=== PATIENT | female | born 1995 | race American Indian/Alaskan Native ===

== ENCOUNTER 2016-08-07 18:43 | Emergency (ER) | payer SELFPAY ==
[2016-08-07 18:58] VITALS: BP 127/86
[2016-08-07 19:39] LABS: Basophils % (Auto) 0.6 % (0.0-1.8); Hemoglobin 14.3 gm/dl (10.1-14.3); Mean Corpuscular HGB Conc 32 % (30-34); Mean Corpuscular Hemoglobin 31 pg (28-32); Mean Corpuscular Volume 96 fl (79-97); Platelet Count 237 K/mm3 (140-440); Red Blood Count 4.59 M/mm3 (3.65-5.03); Red Cell Distribution Width 13.2 % (13.2-15.2); White Blood Count 6.6 K/mm3 (4.5-11.0)
[2016-08-07 19:45] LABS: Alanine Aminotransferase 11 units/L (7-56); Albumin 4.6 g/dL (3.9-5); Albumin/Globulin Ratio 1.4 %; Alkaline Phosphatase 51 units/L (35-129); Anion Gap 26 mmol/L; Blood Urea Nitrogen 14 mg/dL (7-17); Calcium 9.4 mg/dL (8.4-10.2); Carbon Dioxide 20 mmol/L (22-30); Chloride 98.6 mmol/L (98-107); Glucose 102 mg/dL (65-100); Lipase 19 units/L (13-60); Potassium 4.3 mmol/L (3.6-5.0); Sodium 140 mmol/L (137-145); Total Protein 7.9 g/dL (6.3-8.2)
[2016-08-07] MEDS ORDERED: TYLENOL ONE (20:06)
[2016-08-07] MEDS ORDERED: ZOFRAN ODT ONE (20:06)
[2016-08-07] MEDS ORDERED: TYLENOL PO ONE (20:16)
[2016-08-07] MEDS ORDERED: ZOFRAN ODT PO ONE (20:16)
[2016-08-07 20:31] LABS: Bacteria,Urine 1+ /HPF (Negative); Bilirubin,Urine NEG (Negative); Blood,Urine NEG (Negative); Ketones,Urine 80 mg/dL (Negative); Leukocyte Esterase,Urine TR (Negative); Mucus,Urine 3+ /HPF; Nitrite,Urine NEG (Negative)
== END 2016-08-08 01:15 | disposition left against medical advice (07) ==
LOC: ED 18:43
DX: R10.9 Unspecified abdominal pain (principal); R11.2 Nausea with vomiting, unspecified; R19.7 Diarrhea, unspecified; Z53.21 Procedure and treatment not carried out due to patient leaving prior to being seen by health care provider
CPT/HCPCS: 36415; 80053; 81001; 81025; 82962; 83690; 85025; Q0162

== ENCOUNTER 2017-06-05 13:19 | Emergency (ER) | payer OTHER ==
[2017-06-05 14:31] VITALS: BP 105/74
[2017-06-05 16:53] LABS: Bacteria,Urine 1+ /HPF (Negative); Bilirubin,Urine NEG (Negative); Blood,Urine LG (Negative); Color,Urine Yellow (Yellow); Mucus,Urine 3+ /HPF; Urobilinogen,Urine < 2.0 mg/dL (<2.0)
[2017-06-05 16:54] LABS: HCG Qualitative,Urine Negative (Negative)
[2017-06-05] MEDS ORDERED: ZOFRAN ONE (16:55)
[2017-06-05] MEDS ORDERED: NACL 0.9% 1000 ML 1,000 ML ONE (16:55)
[2017-06-05] MEDS ORDERED: NACL 0.9% 1000 ML 1,000 ML IV ONE (16:56)
[2017-06-05] MEDS ORDERED: MORPHINE IV ONE (16:56)
[2017-06-05] MEDS ORDERED: ZOFRAN IV ONE (16:56)
[2017-06-05] MEDS ORDERED: NACL 0.9% 1000 ML 2,000 ML IV ONE (17:00)
--- NOTE | 2017-06-05 17:02 | Emergency Department Report ---
HPI - General Chief Complaint: Nausea/Vomiting/Diarrhea Time Seen by Provider: 06/05/17 16:31 - HPI HPI: The patient is a 22-year-old female presents for evaluation of abdominal pain. The patient reports cramping generalized abdominal pain for the past one day, constant, worsening, currently moderate in severity, exacerbated with retching. She is also experienced severe recurrent nausea and nonbilious, nonbloody emesis and multiple episodes of loose watery stools. The patient denies fever, chest pain, dyspnea, hematemesis, blood in the stools, black tarry stools, recent antibiotic use, travel outside the country, exposure to raw or uncooked seafood, reheated foods, untreated water, unpasteurized dairy, or reptilian pets including lizards, frogs, or snakes. ED Past Medical Hx - Past Medical History Previous Medical History?: No - Surgical History Additional Surgical History: right leg - Social History Smoking Status: Current Every Day Smoker Substance Use Type: None - Medications Home Medications: Home Medications Medication Instructions Recorded Confirmed Last Taken Type HYDROcodone/APAP 5-325 [[place] 1 each PO Q6HR PRN #14 tablet 08/30/15 Unknown Rx 5/325] Sulfamethoxazole/Trimethoprim 1 each PO BID #14 tablet 08/30/15 Unknown Rx [Bactrim DS TAB] Acetaminophen [Tylenol] 1,000 mg PO Q6HR #15 tablet 06/05/17 Unknown Rx Ibuprofen [Motrin] 600 mg PO Q8H PRN #30 tablet 06/05/17 Unknown Rx Ondansetron [Zofran TAB] 4 mg PO Q8HR PRN #20 tablet 06/05/17 Unknown Rx ED Review of Systems ROS: Stated complaint: VOMTING Other details as noted in HPI Constitutional: denies: fever ENT: denies: throat or neck pain Respiratory: denies: cough, shortness of breath Cardiovascular: denies: chest pain Endocrine: denies unexplained weight loss or gain Gastrointestinal: reports: abdominal pain, nausea Genitourinary: denies: dysuria Musculoskeletal: denies: leg swelling Skin: denies: rash Neurological: denies: headache Hematological/Lymphatic: denies: easy bleeding or easy bruising Psych: denies sadness or hopelessness Physical Exam - Physical Exam Vital Signs: Vital Signs 06/05/17 14:16 Temperature 98.7 F Pulse Rate 101 H Respiratory 16 Rate Blood Pressure 105/74 O2 Sat by Pulse 100 Oximetry Physical Exam: General: well-nourished, well-developed, no acute distress Head: Normocephalic, atraumatic Eyes: normal sclera ENT: Mucous membranes are pale and dry Neck: No neck stiffness, no cervical adenopathy Respiratory: Breath sounds equal bilaterally, no wheezing, rales, or rhonchi Cardio: S1 and S2 present, no murmurs, rubs, gallops, capillary refill is delayed Abdomen: Normoactive bowel sounds, soft abdomen, generalized tender to palpation , no rigidity, no guarding or rebound tenderness Musc: No pitting edema Skin: No rash Neuro: no facial drooping, normal speech Psych: Normal affect ED Course Vital Signs 06/05/17 14:16 Temperature 98.7 F Pulse Rate 101 H Respiratory 16 Rate Blood Pressure 105/74 O2 Sat by Pulse 100 Oximetry ED Medical Decision Making - Lab Data Result diagrams: 06/05/17 17:05 06/05/17 17:05 - Medical Decision Making The patient was seen and examined by myself. The patient is placed on a cardiac catheterization technician and continuous pulse ox. On initial evaluation, the patient was found to be in no distress. Evaluation orders are placed. IV access is established and the patient is given 2 L normal saline fluid bolus and Zofran for nausea, and IV analgesic for pain. Lab results were non-concerning including WBC, hemoglobin, hematocrit, electrolytes, renal function, LFTs, lipase, and urinalysis. The patient was reevaluated and reported that their symptoms were markedly improved. The patient is stable for discharge with outpatient follow-up. The patient is given follow-up and return instructions. The patient expressed understanding and agreed with the plan. The patient is discharged in stable condition. Critical care attestation.: If time is entered above; I have spent that time in minutes in the direct care of this critically ill patient, excluding procedure time. ED Disposition Clinical Impression: Dehydration, Acute generalized abdominal pain, Nausea and vomiting in adult patient Disposition: DC-01 TO HOME OR SELFCARE Is pt being admited?: No Does the pt Need Aspirin: No Condition: Stable Instructions: Gastroenteritis (ED), Acute Diarrhea (ED), Food Poisoning (ED), Nutrition Tips for Relief of Diarrhea (ED) Prescriptions: Acetaminophen [Tylenol] 1,000 mg PO Q6HR #15 tablet Ibuprofen [Motrin] 600 mg PO Q8H PRN #30 tablet PRN Reason: Pain Ondansetron [Zofran TAB] 4 mg PO Q8HR PRN #20 tablet PRN Reason: Nausea Referrals: PRIMARY CARE, [Primary Care Provider] - 3-5 Days Time of Disposition: 17:39
[2017-06-05 17:16] LABS: Hematocrit 45.7 % (30.3-42.9); Hemoglobin 15.7 gm/dl (10.1-14.3); Mean Corpuscular HGB Conc 34 % (30-34); Mean Corpuscular Hemoglobin 32 pg (28-32); Mean Corpuscular Volume 94 fl (79-97); Platelet Count 231 K/mm3 (140-440); Red Blood Count 4.89 M/mm3 (3.65-5.03); Red Cell Distribution Width 13.1 % (13.2-15.2)
[2017-06-05 17:29] LABS: Alanine Aminotransferase 36 units/L (7-56); Albumin 4.9 g/dL (3.9-5); BUN/Creatinine Ratio 18; Blood Urea Nitrogen 14 mg/dL (7-17); Calcium 9.8 mg/dL (8.4-10.2); Hemolysis Index 1; Lipase 28 units/L (13-60)
[2017-06-05] MEDS ORDERED: K-DUR PO ONE (17:38)
[2017-06-05 19:09] LABS: Basophils % (Manual) 0 % (0.0-1.8); Eosinophils % (Manual) 0 % (0.0-4.3); Total Cells Counted 100
[2017-06-05 19:10] LABS: RBC Morphology Normal
[2017-06-05 19:11] LABS: Platelet Estimate Consistent w Auto
== END 2017-06-05 17:49 | disposition home or self-care (01) ==
LOC: ED 13:19
DX: E86.0 Dehydration (principal); F17.200 Nicotine dependence, unspecified, uncomplicated
CPT/HCPCS: 36415; 80053; 81001; 81025; 83690; 85007; 85025; 96361; 96374; 96375; 99282; J2270; J2405; J7030

== ENCOUNTER 2017-07-08 23:49 | Emergency (ER) | payer SELFPAY | END 2017-07-08 23:59 | disposition left against medical advice (07) | LOC: ED 23:49 | DX: R11.10 Vomiting, unspecified (principal); Z53.21 Procedure and treatment not carried out due to patient leaving prior to being seen by health care provider ==

== ENCOUNTER 2018-10-02 13:29 | Outpatient (CLI) | payer OTHER ==
[2018-10-02] MEDS ORDERED: LACTATED RINGERS 1,000 ML IV SCH (16:00)
[2018-10-02 16:55] LABS: Bilirubin,Urine NEG (Negative); Blood,Urine NEG (Negative); Color,Urine Yellow (Yellow); Mucus,Urine 2+ /HPF; Protein,Urine <15 mg/dL mg/dL (Negative); Urobilinogen,Urine < 2.0 mg/dL (<2.0)
--- NOTE | 2018-10-02 19:11 | Ultrasound Report ---
ULTRASOUND BIOPHYSICAL PROFILE INDICATION / CLINICAL INFORMATION: Pelvic pain. Evaluate DERRICK's. . COMPARISON: None available. FINDINGS: BREATHING MOVEMENT = 2 GROSS BODY MOVEMENT = 2 TONE = 2 QUALITATIVE AMNIOTIC FLUID VOLUME = 2 TOTAL BIOPHYSICAL SCORE = 10/30 AMNIOTIC FLUID INDEX (cm) = 12.3 PRESENTATION: Cephalic. HEART RATE (beats per minute): 142 IMPRESSION: 1. biophysical profile = 10/30 Signer Name: Andrew Joseph MD Signed: 10/02/2018 7:07 PM Workstation Name: [id number]
== END 2018-10-02 19:11 | disposition home or self-care (01) ==
LOC: TRG 13:29
PROVIDERS: ATTEND Obstetrics & Gynecology
DX: O47.1 False labor at or after 37 completed weeks of gestation (principal); Z3A.40 40 weeks gestation of pregnancy
CPT/HCPCS: 59025; 76815; 76819; 81001; 87086

== ENCOUNTER 2018-10-05 20:19 | Inpatient (IN) | payer OTHER ==
[2018-10-05] MEDS ORDERED: LACTATED RINGERS 1,000 ML ONE (21:48)
[2018-10-05] MEDS ORDERED: XYLOCAINE 2% INFILTRATI ONE (22:29)
[2018-10-05] MEDS ORDERED: BRETHINE SUB-Q PRN (22:29)
[2018-10-05] MEDS ORDERED: AMPICILLIN/NS 2 GM/100 ML 2 GM/100 ML BAG IV ONE (22:29)
--- NOTE | 2018-10-05 22:34 | History and Physical Report ---
History of Present Illness Date of examination: 10/05/18 Date of admission: 10/05/18 20:21 Chief complaint: Here for induction of labor. History of present illness: 23 year old presents for scheduled induction of labor due to late term . Patient has received care at [facility] and records are available. LMP 12/07/17. EDC 09/28/18. significant for the following: late entry to care, + antibody screen (anti-Jerad antibody), vitamin D deficiency (supplemented with vitamin D), GBS positive. labs are as follows: B+, antibody screen positive, rubella immune, RPR nonreactive, hepatitis B surface antigen negative, HIV negative, quad screen negative, 1 hour sugar test 73, gonorrhea negative, chlamydia negative, trichomonas negative, GBS positive. 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 denies: smoking, alcohol abuse, prescription drug abuse, IV drug use - Obstetrical History Expected Date of Delivery: 09/28/18 Actual Gestation: 41 Week(s) 1 Day(s) : 2 Para: 0 Hx # Term Pregnancies: 0 Number of Pregnancies: 0 Spontaneous Abortions: 0 Induced : 1 Number of Living Children: 0 Medications and Allergies Allergies Allergy/AdvReac Type Severity Reaction Status Date / Time pineapple Allergy Hives Verified 02/16/14 11:00 Home Medications Medication Instructions Recorded Confirmed Last Taken Type HYDROcodone/APAP 5-325 [[place] 1 each PO Q6HR PRN #14 tablet 08/30/15 Unknown Rx 5/325] Sulfamethoxazole/Trimethoprim 1 each PO BID #14 tablet 08/30/15 Unknown Rx [Bactrim DS TAB] Acetaminophen [Tylenol] 1,000 mg PO Q6HR #15 tablet 06/05/17 Unknown Rx Acetaminophen/Codeine [Tylenol #3] 1 tab PO Q6H PRN #12 tab 06/05/17 Unknown Rx Ibuprofen [Motrin] 600 mg PO Q8H PRN #30 tablet 06/05/17 Unknown Rx Ondansetron [Zofran TAB] 4 mg PO Q8HR PRN #20 tablet 06/05/17 Unknown Rx Active Meds: Active Medications Ephedrine Sulfate (Ephedrine Sulfate) 10 mg IV Q2M PRN PRN Reason: Hypotension Fentanyl (Sublimaze) 100 mcg IV Q2H PRN PRN Reason: Labor Pain Oxytocin/Sodium Chloride (Pitocin/Ns 20 Unit/1000ml Drip) 20 units in 1,000 mls @ 125 mls/hr IV DIRECT PHOEBE Oxytocin/Sodium Chloride (Pitocin/Ns 30 Unit/500ml) 30 units in 500 mls @ 1 mls/hr IV TITR PHOEBE; Protocol Lactated Ringer's (Lactated Ringers) 1,000 mls @ 125 mls/hr IV DIRECT PHOEBE Ampicillin Sodium (Ampicillin/Ns 2 Gm/100 Ml) 2 gm in 100 mls @ 100 mls/hr IV ONCE ONE; Protocol Stop: 10/05/18 23:28 Ampicillin Sodium (Ampicillin/Ns 1 Gm/50 Ml) 1 gm in 50 mls @ 100 mls/hr IV Q4HR PHOEBE; Protocol Lidocaine (Xylocaine 2%) 20 ml INFILTRATI ONCE ONE Stop: 10/05/18 22:30 Terbutaline Sulfate (Brethine) 0.25 mg SUB-Q ONCE PRN PRN Reason: Hyperstimulation/Hypertonicity Review of Systems Ears, nose, mouth and throat: no headache Cardiovascular: no chest pain Respiratory: no shortness of breath Gastrointestinal: no abdominal pain, no nausea Genitourinary: no vaginal bleeding, no vaginal discharge, no genital sores, no contractions Neurological: no numbness, no tingling, no headaches, no migraines - Vital Signs Vital signs: Vital Signs Pulse BP Pulse Ox 90 130/74 99 10/05/18 20:48 10/05/18 20:48 10/05/18 20:48 Temp Pulse Resp BP Pulse Ox 90 130/74 100 10/05/18 22:09 10/05/18 20:48 10/05/18 22:09 - Physical Exam Abdomen: Positive: normal appearance, soft. Negative: tenderness, guarding, rigidity Genitourinary (Female): Positive: normal external genitalia, normal perenium. Negative: perineal/vulvar lesions Uterus: Positive: enlarged. Negative: tender Anus/Rectum: Positive: normal perianal skin Extremities: Positive: normal. Negative: tenderness, edema - Obstetrical FHR: category 1 Uterine Contraction Monitor Mode: External Cervical Dilatation: 0.5 Cervical Effacement Percentage: 40 station: -4 Uterine Contraction Pattern: Irregular Uterine Contraction Intensity: Mild Results Result Diagrams: 10/05/18 22:20 All other labs normal. Assessment and Plan A: at 41 weeks gestation. GBS positive. P: Admit. GBS prophylaxis. Cervical ripening and induction of labor with Pitocin. Discussed with patient risks and benefits of cervical ripening and induction of labor with Pitocin. Patient consented to Pitocin cervical ripening and induction of labor.
[2018-10-05 22:53] LABS: Hematocrit 34.2 % (30.3-42.9); Hemoglobin 11.2 gm/dl (10.1-14.3); Mean Corpuscular HGB Conc 33 % (30-34); Mean Corpuscular Volume 85 fl (79-97); Platelet Count 249 K/mm3 (140-440); Red Blood Count 4.02 M/mm3 (3.65-5.03); Red Cell Distribution Width 14.8 % (13.2-15.2)
[2018-10-05] MEDS ORDERED: LACTATED RINGERS 1,000 ML IV SCH (23:00)
[2018-10-05] MEDS ORDERED: PITOCin/NS 20 UNIT/1000ML DRIP 20 UNITS/1,000 ML BAG IV SCH (23:00)
[2018-10-05] MEDS ORDERED: PITOCin/NS 30 UNIT/500ML 30 UNITS/500 ML BAG IV SCH (23:00)
[2018-10-06] MEDS: AMPICILLIN/NS 1 GM/50 ML 1 GM/50 ML BAG IV SCH ×4 (02:05→14:31)
[2018-10-06] MEDS: SUBLIMAZE IV PRN ×3 (04:34→10:50)
--- NOTE | 2018-10-06 09:29 | Progress Note ---
Assessment and Plan - Patient Problems (1) Encounter for induction of labor Current Visit: Yes Status: Acute Plan to address problem: Continue routine labor orders Increase Pitocin by 2 q 30 min as tolerated Pain medications as desired Anticipate (2) SROM (spontaneous rupture of membranes) Current Visit: Yes Status: Acute Plan to address problem: Continue temps q h (3) Group beta Strep positive Current Visit: Yes Status: Acute Plan to address problem: ABT prophlaxis per policy Subjective - Subjective Date of service: 10/06/18 ( ) Principal diagnosis: IOL secondary to postdates Interval history: See admission H & P Patient reports: loss of fluid (light meconium), movement normal, contractions (irregular), no vaginal bleeding Objective - Vital Signs Vital Signs: Vital Signs - 12hr 10/05/18 10/05/18 10/05/18 21:29 21:34 21:36 Temperature Pulse Rate 87 89 95 H Respiratory Rate Blood Pressure Blood Pressure [Left] O2 Sat by Pulse 98 98 93 Oximetry 10/05/18 10/05/18 10/05/18 21:39 21:41 21:49 Temperature Pulse Rate 90 90 88 Respiratory Rate Blood Pressure Blood Pressure [Left] O2 Sat by Pulse 99 82 L 97 Oximetry 10/05/18 10/05/18 10/05/18 21:54 21:57 21:59 Temperature Pulse Rate 92 H 99 H 85 Respiratory Rate Blood Pressure Blood Pressure [Left] O2 Sat by Pulse 100 85 100 Oximetry 10/05/18 10/05/18 10/05/18 22:04 22:05 22:09 Temperature Pulse Rate 89 89 90 Respiratory Rate Blood Pressure Blood Pressure [Left] O2 Sat by Pulse 99 53 L 100 Oximetry 10/05/18 10/05/18 10/05/18 23:36 23:37 23:38 Temperature Pulse Rate 85 85 93 H Respiratory Rate Blood Pressure 128/76 Blood Pressure [Left] O2 Sat by Pulse 97 85 Oximetry 10/05/18 10/05/18 10/05/18 23:41 23:45 23:46 Temperature Pulse Rate 89 92 H 87 Respiratory Rate Blood Pressure Blood Pressure [Left] O2 Sat by Pulse 97 94 97 Oximetry 10/05/18 10/05/18 10/06/18 23:51 23:56 00:01 Temperature Pulse Rate 95 H 81 87 Respiratory Rate Blood Pressure Blood Pressure [Left] O2 Sat by Pulse 99 98 97 Oximetry 10/06/18 10/06/18 10/06/18 00:06 00:24 00:29 Temperature Pulse Rate 87 92 H Respiratory Rate Blood Pressure Blood Pressure [Left] O2 Sat by Pulse 97 98 99 Oximetry 10/06/18 10/06/18 10/06/18 00:31 00:34 00:39 Temperature Pulse Rate 88 87 88 Respiratory Rate Blood Pressure 125/81 Blood Pressure [Left] O2 Sat by Pulse 99 100 Oximetry 10/06/18 10/06/18 10/06/18 00:44 00:49 00:54 Temperature Pulse Rate 98 H 97 H 100 H Respiratory Rate Blood Pressure Blood Pressure [Left] O2 Sat by Pulse 99 99 98 Oximetry 10/06/18 10/06/18 10/06/18 00:59 01:04 01:09 Temperature Pulse Rate 94 H 104 H 87 Respiratory Rate Blood Pressure Blood Pressure [Left] O2 Sat by Pulse 98 98 98 Oximetry 10/06/18 10/06/18 10/06/18 01:14 01:19 01:24 Temperature Pulse Rate 89 91 H 100 H Respiratory Rate Blood Pressure Blood Pressure [Left] O2 Sat by Pulse 99 99 99 Oximetry 10/06/18 10/06/18 10/06/18 01:29 01:30 01:34 Temperature Pulse Rate 83 85 107 H Respiratory Rate Blood Pressure 119/74 Blood Pressure [Left] O2 Sat by Pulse 99 99 Oximetry 10/06/18 10/06/18 10/06/18 01:35 01:39 01:44 Temperature Pulse Rate 96 H 87 97 H Respiratory Rate Blood Pressure Blood Pressure [Left] O2 Sat by Pulse 94 100 99 Oximetry 10/06/18 10/06/18 10/06/18 01:49 01:54 01:56 Temperature Pulse Rate 100 H 88 89 Respiratory Rate Blood Pressure Blood Pressure [Left] O2 Sat by Pulse 98 99 94 Oximetry 10/06/18 10/06/18 10/06/18 01:59 02:04 02:09 Temperature Pulse Rate 94 H 89 97 H Respiratory Rate Blood Pressure Blood Pressure [Left] O2 Sat by Pulse 99 99 99 Oximetry 10/06/18 10/06/18 10/06/18 02:14 02:20 02:30 Temperature Pulse Rate 93 H 89 106 H Respiratory Rate Blood Pressure Blood Pressure [Left] O2 Sat by Pulse 100 98 91 Oximetry 10/06/18 10/06/18 10/06/18 02:31 02:35 02:40 Temperature Pulse Rate 103 H 101 H 88 Respiratory Rate Blood Pressure Blood Pressure [Left] O2 Sat by Pulse 93 98 98 Oximetry 10/06/18 10/06/18 10/06/18 02:45 02:50 02:55 Temperature 98.6 F Pulse Rate 102 H 86 90 Respiratory Rate Blood Pressure Blood Pressure [Left] O2 Sat by Pulse 97 98 98 Oximetry 10/06/18 10/06/18 10/06/18 03:00 03:05 03:10 Temperature Pulse Rate 89 89 85 Respiratory Rate Blood Pressure Blood Pressure [Left] O2 Sat by Pulse 98 96 98 Oximetry 10/06/18 10/06/18 10/06/18 03:15 03:18 03:20 Temperature Pulse Rate 85 93 H 87 Respiratory Rate Blood Pressure Blood Pressure [Left] O2 Sat by Pulse 99 89 97 Oximetry 10/06/18 10/06/18 10/06/18 03:25 03:30 03:35 Temperature Pulse Rate 81 81 80 Respiratory Rate Blood Pressure 105/69 Blood Pressure [Left] O2 Sat by Pulse 97 97 96 Oximetry 10/06/18 10/06/18 10/06/18 03:40 03:45 03:52 Temperature Pulse Rate 81 84 102 H Respiratory Rate Blood Pressure Blood Pressure [Left] O2 Sat by Pulse 95 98 100 Oximetry 10/06/18 10/06/18 10/06/18 03:57 04:02 04:07 Temperature Pulse Rate 81 79 84 Respiratory Rate Blood Pressure Blood Pressure [Left] O2 Sat by Pulse 100 100 97 Oximetry 10/06/18 10/06/18 10/06/18 04:12 04:17 04:22 Temperature Pulse Rate 82 90 90 Respiratory Rate Blood Pressure Blood Pressure [Left] O2 Sat by Pulse 98 97 100 Oximetry 10/06/18 10/06/18 10/06/18 04:25 04:27 04:30 Temperature Pulse Rate 95 H 94 H 88 Respiratory Rate Blood Pressure 119/79 Blood Pressure [Left] O2 Sat by Pulse 65 L 100 Oximetry 10/06/18 10/06/18 10/06/18 04:32 04:37 04:42 Temperature Pulse Rate 99 H 108 H 99 H Respiratory Rate Blood Pressure Blood Pressure [Left] O2 Sat by Pulse 100 98 99 Oximetry 10/06/18 10/06/18 10/06/18 04:47 04:52 04:57 Temperature Pulse Rate 94 H 83 91 H Respiratory Rate Blood Pressure Blood Pressure [Left] O2 Sat by Pulse 98 100 100 Oximetry 10/06/18 10/06/18 10/06/18 05:12 05:17 05:22 Temperature Pulse Rate 91 H 103 H 97 H Respiratory Rate Blood Pressure Blood Pressure [Left] O2 Sat by Pulse 97 100 97 Oximetry 10/06/18 10/06/18 10/06/18 05:24 05:27 05:29 Temperature Pulse Rate 93 H 94 H 79 Respiratory Rate Blood Pressure 122/73 Blood Pressure [Left] O2 Sat by Pulse 84 98 Oximetry 10/06/18 10/06/18 10/06/18 05:32 05:35 05:37 Temperature Pulse Rate 91 H 92 H 95 H Respiratory Rate Blood Pressure Blood Pressure [Left] O2 Sat by Pulse 98 94 99 Oximetry 10/06/18 10/06/18 10/06/18 05:41 05:42 05:47 Temperature Pulse Rate 107 H 102 H 96 H Respiratory Rate Blood Pressure Blood Pressure [Left] O2 Sat by Pulse 83 L 98 99 Oximetry 10/06/18 10/06/18 10/06/18 05:52 05:57 06:02 Temperature Pulse Rate 100 H 95 H 105 H Respiratory Rate Blood Pressure Blood Pressure [Left] O2 Sat by Pulse 99 100 99 Oximetry 10/06/18 10/06/18 10/06/18 06:07 06:12 06:17 Temperature Pulse Rate 98 H 79 88 Respiratory Rate Blood Pressure Blood Pressure [Left] O2 Sat by Pulse 99 99 100 Oximetry 10/06/18 10/06/18 10/06/18 06:18 06:22 06:27 Temperature Pulse Rate 95 H 85 Respiratory 20 Rate Blood Pressure Blood Pressure [Left] O2 Sat by Pulse 100 96 Oximetry 10/06/18 10/06/18 10/06/18 06:28 06:29 06:32 Temperature Pulse Rate 94 H 97 H 89 Respiratory Rate Blood Pressure 105/58 Blood Pressure [Left] O2 Sat by Pulse 94 97 Oximetry 10/06/18 10/06/18 10/06/18 06:37 06:41 06:42 Temperature Pulse Rate 81 84 87 Respiratory Rate Blood Pressure Blood Pressure [Left] O2 Sat by Pulse 98 91 97 Oximetry 10/06/18 10/06/18 10/06/18 06:47 06:52 06:57 Temperature Pulse Rate 94 H 90 88 Respiratory Rate Blood Pressure Blood Pressure [Left] O2 Sat by Pulse 95 98 99 Oximetry 10/06/18 10/06/18 10/06/18 07:02 07:07 07:09 Temperature Pulse Rate 87 81 87 Respiratory Rate Blood Pressure Blood Pressure [Left] O2 Sat by Pulse 98 99 94 Oximetry 10/06/18 10/06/18 10/06/18 07:12 07:17 07:22 Temperature Pulse Rate 105 H 88 91 H Respiratory Rate Blood Pressure Blood Pressure [Left] O2 Sat by Pulse 99 99 99 Oximetry 10/06/18 10/06/18 10/06/18 07:29 07:33 07:34 Temperature Pulse Rate 86 87 95 H Respiratory Rate Blood Pressure 115/76 Blood Pressure [Left] O2 Sat by Pulse 98 92 96 Oximetry 10/06/18 10/06/18 10/06/18 07:53 07:56 07:58 Temperature Pulse Rate 85 97 H 81 Respiratory Rate Blood Pressure Blood Pressure [Left] O2 Sat by Pulse 99 81 L 100 Oximetry 10/06/18 10/06/18 10/06/18 08:00 08:03 08:08 Temperature Pulse Rate 81 79 78 Respiratory Rate Blood Pressure 119/67 Blood Pressure [Left] O2 Sat by Pulse 96 99 Oximetry 10/06/18 10/06/18 10/06/18 08:10 08:13 08:18 Temperature 96.8 F L Pulse Rate 81 79 98 H Respiratory 18 Rate Blood Pressure 116/72 Blood Pressure 116/72 [Left] O2 Sat by Pulse 97 99 97 Oximetry 10/06/18 10/06/18 10/06/18 08:21 08:23 08:27 Temperature Pulse Rate 94 H 82 102 H Respiratory Rate Blood Pressure Blood Pressure [Left] O2 Sat by Pulse 93 98 86 Oximetry 10/06/18 10/06/18 10/06/18 08:39 08:40 08:44 Temperature Pulse Rate 91 H 93 H 86 Respiratory Rate Blood Pressure 114/57 Blood Pressure [Left] O2 Sat by Pulse 97 98 Oximetry 10/06/18 10/06/18 10/06/18 08:49 08:54 08:59 Temperature Pulse Rate 89 101 H 87 Respiratory Rate Blood Pressure Blood Pressure [Left] O2 Sat by Pulse 97 99 100 Oximetry 10/06/18 10/06/18 10/06/18 09:02 09:04 09:09 Temperature Pulse Rate 106 H 105 H 98 H Respiratory Rate Blood Pressure Blood Pressure [Left] O2 Sat by Pulse 53 L 99 98 Oximetry 10/06/18 10/06/18 10/06/18 09:10 09:11 09:14 Temperature Pulse Rate 107 H 102 H 79 Respiratory Rate Blood Pressure 136/88 Blood Pressure [Left] O2 Sat by Pulse 82 L 99 Oximetry 10/06/18 10/06/18 09:17 09:19 Temperature Pulse Rate 104 H 81 Respiratory Rate Blood Pressure Blood Pressure [Left] O2 Sat by Pulse 84 97 Oximetry - Exam Breasts: deferred Cardiovascular: Regular rate Lungs: Normal air movement Abdomen: Present: other (gravid) Uterus: Present: other (S=D) FHR: category 1 Uterine Contraction Monitor Mode: External Cervical Dilatation: 1 Cervical Effacement Percentage: 75 station: -3 Uterine Contraction Pattern: Irregular Uterine Tone Measurement Phase: Resting Uterine Contraction Intensity: Mild Extremities: normal Deep Tendon Reflex Grade: Normal +2 - Labs Labs: Laboratory Results - last 24 hr 10/05/18 10/05/18 22:20 22:20 WBC 7.7 RBC 4.02 Hgb 11.2 Hct 34.2 MCV 85 MCH 28 MCHC 33 RDW 14.8 Plt Count 249 Blood Type B POSITIVE Antibody Screen Not Reportable FAISAL Antibody Screen Negative
[2018-10-06] MEDS ORDERED: ZOFRAN IV PRN ×2 (13:29→18:10)
[2018-10-06] MEDS: STADOL IV PRN ×2 (14:15→16:07)
--- NOTE | 2018-10-06 16:20 | Progress Note ---
Assessment and Plan - Patient Problems (1) Encounter for induction of labor Current Visit: Yes Status: Acute Plan to address problem: Continue routine labor orders Continue Pitocin as tolerated Pain medications as desired Anticipate (2) SROM (spontaneous rupture of membranes) Current Visit: Yes Status: Acute Plan to address problem: Continue temps q h No meconium noted at present (3) Group beta Strep positive Current Visit: Yes Status: Acute Plan to address problem: Continue IV-ABT prophlaxis per policy Subjective - Subjective Date of service: 10/06/18 Principal diagnosis: IOL secondary to postdates Interval history: See admission H & P and OB progress notes Patient reports: new complaints (Reports pressure in rectum and feeling like she needs to push), loss of fluid (no meconium visualized at this time), movement normal, contractions (irregular), no vaginal bleeding Objective - Vital Signs Vital Signs: Vital Signs - 12hr 10/06/18 10/06/18 10/06/18 04:17 04:22 04:25 Temperature Pulse Rate 90 90 95 H Respiratory Rate Blood Pressure Blood Pressure [Left] O2 Sat by Pulse 97 100 65 L Oximetry 10/06/18 10/06/18 10/06/18 04:27 04:30 04:32 Temperature Pulse Rate 94 H 88 99 H Respiratory Rate Blood Pressure 119/79 Blood Pressure [Left] O2 Sat by Pulse 100 100 Oximetry 10/06/18 10/06/18 10/06/18 04:37 04:42 04:47 Temperature Pulse Rate 108 H 99 H 94 H Respiratory Rate Blood Pressure Blood Pressure [Left] O2 Sat by Pulse 98 99 98 Oximetry 10/06/18 10/06/18 10/06/18 04:52 04:57 05:12 Temperature Pulse Rate 83 91 H 91 H Respiratory Rate Blood Pressure Blood Pressure [Left] O2 Sat by Pulse 100 100 97 Oximetry 10/06/18 10/06/18 10/06/18 05:17 05:22 05:24 Temperature Pulse Rate 103 H 97 H 93 H Respiratory Rate Blood Pressure Blood Pressure [Left] O2 Sat by Pulse 100 97 84 Oximetry 10/06/18 10/06/18 10/06/18 05:27 05:29 05:32 Temperature Pulse Rate 94 H 79 91 H Respiratory Rate Blood Pressure 122/73 Blood Pressure [Left] O2 Sat by Pulse 98 98 Oximetry 0710/06/18 10/06/18 05:35 05:37 05:41 Temperature Pulse Rate 92 H 95 H 107 H Respiratory Rate Blood Pressure Blood Pressure [Left] O2 Sat by Pulse 94 99 83 L Oximetry 10/06/18 10/06/18 10/06/18 05:42 05:47 05:52 Temperature Pulse Rate 102 H 96 H 100 H Respiratory Rate Blood Pressure Blood Pressure [Left] O2 Sat by Pulse 98 99 99 Oximetry 10/06/18 10/06/18 10/06/18 05:57 06:02 06:07 Temperature Pulse Rate 95 H 105 H 98 H Respiratory Rate Blood Pressure Blood Pressure [Left] O2 Sat by Pulse 100 99 99 Oximetry 10/06/18 10/06/18 10/06/18 06:12 06:17 06:18 Temperature Pulse Rate 79 88 Respiratory 20 Rate Blood Pressure Blood Pressure [Left] O2 Sat by Pulse 99 100 Oximetry 10/06/18 10/06/18 10/06/18 06:22 06:27 06:28 Temperature Pulse Rate 95 H 85 94 H Respiratory Rate Blood Pressure Blood Pressure [Left] O2 Sat by Pulse 100 96 94 Oximetry 10/06/18 10/06/18 10/06/18 06:29 06:32 06:37 Temperature Pulse Rate 97 H 89 81 Respiratory Rate Blood Pressure 105/58 Blood Pressure [Left] O2 Sat by Pulse 97 98 Oximetry 10/06/18 10/06/18 10/06/18 06:41 06:42 06:47 Temperature Pulse Rate 84 87 94 H Respiratory Rate Blood Pressure Blood Pressure [Left] O2 Sat by Pulse 91 97 95 Oximetry 10/06/18 10/06/18 10/06/18 06:52 06:57 07:02 Temperature Pulse Rate 90 88 87 Respiratory Rate Blood Pressure Blood Pressure [Left] O2 Sat by Pulse 98 99 98 Oximetry 10/06/18 10/06/18 10/06/18 07:07 07:09 07:12 Temperature Pulse Rate 81 87 105 H Respiratory Rate Blood Pressure Blood Pressure [Left] O2 Sat by Pulse 99 94 99 Oximetry 10/06/18 10/06/18 10/06/18 07:17 07:22 07:29 Temperature Pulse Rate 88 91 H 86 Respiratory Rate Blood Pressure 115/76 Blood Pressure [Left] O2 Sat by Pulse 99 99 98 Oximetry 0710/06/18 10/06/18 07:33 07:34 07:53 Temperature Pulse Rate 87 95 H 85 Respiratory Rate Blood Pressure Blood Pressure [Left] O2 Sat by Pulse 92 96 99 Oximetry 10/06/18 10/06/18 10/06/18 07:56 07:58 08:00 Temperature Pulse Rate 97 H 81 81 Respiratory Rate Blood Pressure 119/67 Blood Pressure [Left] O2 Sat by Pulse 81 L 100 Oximetry 10/06/18 10/06/18 10/06/18 08:03 08:08 08:10 Temperature 96.8 F L Pulse Rate 79 78 81 Respiratory 18 Rate Blood Pressure 116/72 Blood Pressure 116/72 [Left] O2 Sat by Pulse 96 99 97 Oximetry 10/06/18 10/06/18 10/06/18 08:13 08:18 08:21 Temperature Pulse Rate 79 98 H 94 H Respiratory Rate Blood Pressure Blood Pressure [Left] O2 Sat by Pulse 99 97 93 Oximetry 10/06/18 10/06/18 10/06/18 08:23 08:27 08:39 Temperature Pulse Rate 82 102 H 91 H Respiratory Rate Blood Pressure Blood Pressure [Left] O2 Sat by Pulse 98 86 97 Oximetry 10/06/18 10/06/18 10/06/18 08:40 08:44 08:49 Temperature Pulse Rate 93 H 86 89 Respiratory Rate Blood Pressure 114/57 Blood Pressure [Left] O2 Sat by Pulse 98 97 Oximetry 10/06/18 10/06/18 10/06/18 08:54 08:59 09:02 Temperature Pulse Rate 101 H 87 106 H Respiratory Rate Blood Pressure Blood Pressure [Left] O2 Sat by Pulse 99 100 53 L Oximetry 10/06/18 10/06/18 10/06/18 09:04 09:09 09:10 Temperature Pulse Rate 105 H 98 H 107 H Respiratory Rate Blood Pressure Blood Pressure [Left] O2 Sat by Pulse 99 98 82 L Oximetry 10/06/18 10/06/18 10/06/18 09:11 09:14 09:17 Temperature Pulse Rate 102 H 79 104 H Respiratory Rate Blood Pressure 136/88 Blood Pressure [Left] O2 Sat by Pulse 99 84 Oximetry 10/06/18 10/06/18 10/06/18 09:19 09:24 09:26 Temperature Pulse Rate 81 85 87 Respiratory Rate Blood Pressure Blood Pressure [Left] O2 Sat by Pulse 97 98 90 Oximetry 10/06/18 10/06/18 10/06/18 09:29 09:35 09:40 Temperature Pulse Rate 78 85 99 H Respiratory Rate Blood Pressure 115/57 Blood Pressure [Left] O2 Sat by Pulse 99 99 Oximetry 10/06/18 10/06/18 10/06/18 09:54 09:59 10:00 Temperature Pulse Rate 104 H 90 67 Respiratory Rate Blood Pressure Blood Pressure [Left] O2 Sat by Pulse 98 99 68 L Oximetry 10/06/18 10/06/18 10/06/18 10:04 10:09 10:10 Temperature Pulse Rate 95 H 90 98 H Respiratory Rate Blood Pressure 130/81 Blood Pressure [Left] O2 Sat by Pulse 100 99 Oximetry 10/06/18 10/06/18 10/06/18 10:14 10:19 10:24 Temperature Pulse Rate 85 101 H 100 H Respiratory Rate Blood Pressure Blood Pressure [Left] O2 Sat by Pulse 100 98 100 Oximetry 10/06/18 10/06/18 10/06/18 10:49 10:50 10:54 Temperature Pulse Rate 109 H 87 Respiratory 16 Rate Blood Pressure Blood Pressure [Left] O2 Sat by Pulse 98 97 Oximetry 10/06/18 10/06/18 10/06/18 10:59 11:04 11:09 Temperature Pulse Rate 91 H 85 90 Respiratory Rate Blood Pressure Blood Pressure [Left] O2 Sat by Pulse 98 98 99 Oximetry 10/06/18 10/06/18 10/06/18 11:10 11:14 11:19 Temperature Pulse Rate 86 102 H 94 H Respiratory Rate Blood Pressure 137/81 Blood Pressure [Left] O2 Sat by Pulse 98 98 Oximetry 10/06/18 10/06/18 10/06/18 11:24 11:29 11:34 Temperature Pulse Rate 102 H 91 H 91 H Respiratory Rate Blood Pressure Blood Pressure [Left] O2 Sat by Pulse 98 99 100 Oximetry 10/06/18 10/06/18 10/06/18 11:39 11:41 12:00 Temperature Pulse Rate 98 H 93 H 100 H Respiratory Rate Blood Pressure 138/78 Blood Pressure [Left] O2 Sat by Pulse 98 100 Oximetry 10/06/18 10/06/18 10/06/18 12:01 12:05 12:08 Temperature 97.1 F L Pulse Rate 93 H 91 H 108 H Respiratory 18 Rate Blood Pressure 139/90 Blood Pressure 139/90 [Left] O2 Sat by Pulse 100 100 94 Oximetry 10/06/18 10/06/18 10/06/18 12:10 12:11 12:16 Temperature Pulse Rate 109 H 89 Respiratory Rate Blood Pressure 135/104 Blood Pressure [Left] O2 Sat by Pulse 99 100 Oximetry 10/06/18 10/06/18 10/06/18 12:18 12:21 12:26 Temperature Pulse Rate 111 H 101 H 100 H Respiratory Rate Blood Pressure 133/97 Blood Pressure [Left] O2 Sat by Pulse 98 99 Oximetry 10/06/18 10/06/18 10/06/18 12:56 13:01 13:06 Temperature Pulse Rate 101 H 107 H 111 H Respiratory Rate Blood Pressure Blood Pressure [Left] O2 Sat by Pulse 99 100 99 Oximetry 10/06/18 10/06/18 10/06/18 13:11 13:16 13:21 Temperature Pulse Rate 94 H 101 H 87 Respiratory Rate Blood Pressure 136/74 Blood Pressure [Left] O2 Sat by Pulse 100 100 100 Oximetry 10/06/18 10/06/18 10/06/18 13:26 13:31 13:54 Temperature Pulse Rate 92 H 113 H 94 H Respiratory Rate Blood Pressure Blood Pressure [Left] O2 Sat by Pulse 100 100 93 Oximetry 10/06/18 10/06/18 10/06/18 13:59 14:04 14:09 Temperature Pulse Rate 85 103 H 97 H Respiratory Rate Blood Pressure Blood Pressure [Left] O2 Sat by Pulse 100 100 98 Oximetry 10/06/18 10/06/18 10/06/18 14:13 14:14 14:19 Temperature Pulse Rate 98 H 115 H 90 Respiratory Rate Blood Pressure 121/59 Blood Pressure [Left] O2 Sat by Pulse 99 95 Oximetry 10/06/18 10/06/18 10/06/18 14:24 14:27 14:29 Temperature Pulse Rate 103 H 94 H 105 H Respiratory Rate Blood Pressure 109/59 125/72 Blood Pressure [Left] O2 Sat by Pulse 95 94 98 Oximetry 10/06/18 10/06/18 10/06/18 14:34 14:35 14:39 Temperature 97.1 F L Pulse Rate 101 H 96 H 109 H Respiratory Rate Blood Pressure 119/72 130/69 Blood Pressure [Left] O2 Sat by Pulse 95 94 97 Oximetry 10/06/18 10/06/18 10/06/18 14:41 14:43 14:44 Temperature Pulse Rate 101 H 102 H 114 H Respiratory Rate Blood Pressure 124/71 Blood Pressure [Left] O2 Sat by Pulse 92 97 Oximetry 10/06/18 10/06/18 10/06/18 14:49 14:50 14:54 Temperature Pulse Rate 103 H 110 H 109 H Respiratory Rate Blood Pressure 120/73 118/70 Blood Pressure [Left] O2 Sat by Pulse 96 97 Oximetry 10/06/18 10/06/18 10/06/18 14:57 14:59 15:04 Temperature Pulse Rate 95 H 103 H 106 H Respiratory Rate Blood Pressure 121/62 Blood Pressure [Left] O2 Sat by Pulse 94 98 99 Oximetry 10/06/18 10/06/18 10/06/18 15:05 15:34 15:39 Temperature Pulse Rate 105 H 110 H 86 Respiratory Rate Blood Pressure 119/89 126/60 Blood Pressure [Left] O2 Sat by Pulse 99 100 Oximetry 10/06/18 10/06/18 10/06/18 15:43 15:44 15:47 Temperature Pulse Rate 96 H 81 114 H Respiratory Rate Blood Pressure 130/72 Blood Pressure [Left] O2 Sat by Pulse 100 93 Oximetry 10/06/18 10/06/18 10/06/18 15:48 15:49 15:53 Temperature Pulse Rate 101 H 101 H 100 H Respiratory Rate Blood Pressure 121/67 135/67 Blood Pressure [Left] O2 Sat by Pulse 100 Oximetry 10/06/18 10/06/18 10/06/18 15:54 15:58 15:59 Temperature Pulse Rate 102 H 103 H 96 H Respiratory Rate Blood Pressure 126/73 Blood Pressure [Left] O2 Sat by Pulse 100 99 Oximetry 10/06/18 10/06/18 10/06/18 16:04 16:07 16:12 Temperature Pulse Rate 96 H 108 H 105 H Respiratory Rate Blood Pressure 124/64 Blood Pressure [Left] O2 Sat by Pulse 100 98 Oximetry 10/06/18 16:15 Temperature Pulse Rate 106 H Respiratory Rate Blood Pressure Blood Pressure [Left] O2 Sat by Pulse 94 Oximetry - Exam Breasts: deferred Cardiovascular: Regular rate Lungs: Normal air movement Abdomen: Present: other (gravid) Uterus: Present: other (S=D) FHR: category 1, other (Currently on Pitocin 16 mu/min) Uterine Contraction Monitor Mode: External Cervical Dilatation: 5 Cervical Effacement Percentage: 90 station: -1 Uterine Contraction Frequency (min): 2-3 Uterine Contraction Pattern: Irregular Uterine Tone Measurement Phase: Resting Uterine Contraction Intensity: Moderate Extremities: normal - Labs Labs: Laboratory Results - last 24 hr 10/05/18 10/05/18 10/05/18 22:20 22:20 22:20 WBC 7.7 RBC 4.02 Hgb 11.2 Hct 34.2 MCV 85 MCH 28 MCHC 33 RDW 14.8 Plt Count 249 RPR Nonreactive Blood Type B POSITIVE Antibody Screen Not Reportable FAISAL Antibody Screen Negative
[2018-10-06] MEDS ORDERED: XYLOCAINE 2% INFILTRATI ONE (17:18)
[2018-10-06] MEDS ORDERED: PHENERGAN PO PRN (18:10)
[2018-10-06] MEDS ORDERED: MILK OF MAGNESIA PO PRN (18:10)
[2018-10-06] MEDS ORDERED: LANSINOH TP PRN (18:10)
[2018-10-06] MEDS ORDERED: DULCOLAX PR PRN (18:10)
[2018-10-06] MEDS ORDERED: TUCKS PAD TP PRN (18:10)
[2018-10-06] MEDS ORDERED: BENADRYL PO PRN (18:10)
--- NOTE | 2018-10-06 18:25 | Procedure Note ---
OB Delivery Note - Delivery Date of Delivery: 10/06/18 (5119) Surgeon: SMOOTH BONE (CNM) Estimated blood loss: other (350cc) - Vaginal Delivery presentation: vertex Delivery position: OA (ERIN) Intrapartum events: meconium (light), other(please specify) (Compound delivery with right hand) Delivery induction: oxytocin Delivery augmentation: pitocin Delivery monitor: external FHT, external uterine Route of delivery: Delivery placenta: spontaneous (1756; [place]) Delivery cord: 3 umbilical vessels Episiotomy: none Delivery laceration: 1st degree (right perineal, not repaired, hemostasis maintained) Anesthesia: none Delivery comments: of viable, floppy, non-crying male . NICU at bedside, cord immediately double clamped and cut, handed over for evaluation by team. Placenta spontaneously delivered, carol, disposed per hospital policy. Uterus firm @ U, hemostasis maintained. 1st degree laceration noted on right perineum, hemostasis maintained, not repaired. Baby evaluated and cleared by NICU team and returned to maternal chest. Mother and baby safe, stable and bonding. - Infant A at 1 minute: 8 at 5 minutes: 9 Gender: Male (Weight: 3501 grams (7lbs 11ozs); 21 inches)
[2018-10-06] MEDS ORDERED: SODIUM CHLORIDE FLUSH SYRINGE 10 ML IV NR (19:00)
[2018-10-07] MEDS: IBUPROFEN PO SCH ×5 (00:03→23:25)
[2018-10-07 05:36] LABS: Hematocrit 25.2 % (30.3-42.9); Hemoglobin 8.4 gm/dl (10.1-14.3)
[2018-10-07] MEDS: PRENATAL VITAMIN PO SCH (10:25)
[2018-10-07] MEDS: FEOSOL PO SCH (10:25)
[2018-10-07] MEDS: COLACE PO SCH (10:25)
--- NOTE | 2018-10-07 10:49 | Progress Note ---
Assessment and Plan (1) (normal spontaneous vaginal delivery) Current Visit: Yes Status: Acute Plan to address problem: PPD#1 s/p Continue routine PP orders Anticipate d/c home in 24 hrs (2) Anemia Current Visit: Yes Status: Acute Qualifiers: Anemia type: other cause Other causes of anemia: iron deficiency Quali fied Code(s): Plan to address problem: Ferrous sulfate 325mg po BID Increase iron rich foods in diet Subjective - Subjective Date of service: 10/07/18 Principal diagnosis: PPD#1 s/p Patient reports: appetite normal, voiding normally, pain well controlled, flatus, ambulating normally [place]: doing well, nursing well Objective - Vital Signs Latest vital signs: Vital Signs Temp Pulse Resp BP BP Pulse Ox 10/07/18 08:01 97.6 F 79 20 103/59 98 10/07/18 03:49 98.7 F 100 H 18 108/66 98 10/07/18 00:14 99.2 F 99 H 18 111/65 98 10/06/18 20:22 98.5 F 90 18 111/63 98 10/06/18 19:03 97.5 F L 96 H 118/65 10/06/18 18:53 114 H 102/55 10/06/18 18:42 103 H 116/60 10/06/18 18:32 104 H 116/61 10/06/18 18:23 120 H 129/60 10/06/18 17:53 115 H 123/72 10/06/18 17:49 139 H 100 10/06/18 17:44 126 H 98 10/06/18 17:39 116 H 99 10/06/18 17:34 71 89 10/06/18 17:31 79 L 10/06/18 17:29 83 81 L 10/06/18 17:25 107 H 86 10/06/18 17:24 107 H 100 10/06/18 17:20 101 H 86 10/06/18 17:18 89 100 10/06/18 17:13 90 99 10/06/18 17:08 96 H 100 10/06/18 17:05 104 H 157/84 10/06/18 17:03 84 99 10/06/18 17:00 64 86 10/06/18 16:58 100 H 99 10/06/18 16:54 108 H 92 10/06/18 16:52 111 H 99 10/06/18 16:47 97 H 100 10/06/18 16:42 103 H 100 10/06/18 16:39 106 H 83 L 10/06/18 16:37 78 100 10/06/18 16:32 111 H 98 10/06/18 16:28 104 H 86 10/06/18 16:27 105 H 91 10/06/18 16:22 105 H 92 10/06/18 16:17 111 H 99 10/06/18 16:15 106 H 94 10/06/18 16:12 105 H 98 10/06/18 16:07 108 H 100 10/06/18 16:04 97.9 F 96 H 18 124/64 100 10/06/18 15:59 96 H 99 10/06/18 15:58 103 H 126/73 10/06/18 15:54 102 H 100 10/06/18 15:53 100 H 135/67 10/06/18 15:49 101 H 100 10/06/18 15:48 101 H 121/67 10/06/18 15:47 114 H 93 10/06/18 15:44 81 100 10/06/18 15:43 96 H 130/72 10/06/18 15:39 86 126/60 100 10/06/18 15:34 110 H 99 10/06/18 15:05 105 H 119/89 10/06/18 15:04 106 H 99 10/06/18 14:59 103 H 121/62 98 10/06/18 14:57 95 H 94 10/06/18 14:54 109 H 118/70 97 10/06/18 14:50 110 H 120/73 10/06/18 14:49 103 H 96 10/06/18 14:44 114 H 97 10/06/18 14:43 102 H 124/71 10/06/18 14:41 101 H 92 10/06/18 14:39 109 H 130/69 97 10/06/18 14:35 97.1 F L 96 H 94 10/06/18 14:34 101 H 119/72 95 15 14:29 105 H 125/72 98 10/06/18 14:27 94 H 94 10/06/18 14:24 103 H 109/59 95 10/06/18 14:19 90 95 10/06/18 14:14 115 H 99 10/06/18 14:13 98 H 121/59 10/06/18 14:09 97 H 98 10/06/18 14:04 103 H 100 10/06/18 13:59 85 100 10/06/18 13:54 94 H 93 10/06/18 13:31 113 H 100 10/06/18 13:26 92 H 100 10/06/18 13:21 87 100 10/06/18 13:16 101 H 100 10/06/18 13:11 94 H 136/74 100 10/06/18 13:06 111 H 99 10/06/18 13:01 107 H 100 10/06/18 12:56 101 H 99 10/06/18 12:26 100 H 99 10/06/18 12:21 101 H 98 10/06/18 12:18 111 H 133/97 10/06/18 12:16 89 100 10/06/18 12:11 135/104 10/06/18 12:10 109 H 99 10/06/18 12:08 108 H 94 10/06/18 12:05 91 H 100 10/06/18 12:01 97.1 F L 93 H 18 139/90 139/90 100 10/06/18 12:00 100 H 100 10/06/18 11:41 93 H 138/78 10/06/18 11:39 98 H 98 10/06/18 11:34 91 H 100 10/06/18 11:29 91 H 99 10/06/18 11:24 102 H 98 10/06/18 11:19 94 H 98 10/06/18 11:14 102 H 98 10/06/18 11:10 86 137/81 10/06/18 11:09 90 99 10/06/18 11:04 85 98 10/06/18 10:59 91 H 98 10/06/18 10:54 87 97 10/06/18 10:50 16 10/06/18 10:49 109 H 98 Intake and Output 10/06/18 10/07/18 10/07/18 23:59 07:59 15:59 Intake Total 28 600 Output Total 800 1400 Balance -772 -800 Intake: IV 28 PITOCin/NS 30 UNIT/500ML 28 30 units In 500 ml @ 1 MILLIUNITS/MIN 1 mls/hr IV TITR PHOEBE Rx#:[id number] Intake, Free Water 600 Output: Urine 800 1400 Void 800 1400 Other: Total, Output Amount 800 600 # Voids Void 1 Estimated Blood Loss 350 - Exam Breasts: Present: normal Cardiovascular: Present: Regular rate, Normal S1, Normal S2, No murmurs Lungs: Present: Clear to auscultation, Normal air movement Abdomen: Present: normal appearance, soft, normal bowel sounds. Absent: distention Vulva: both: normal, laceration/episiotomy (1st degree, well approximated) Uterus: Present: firm, fundal height below umbilicus Extremities: Present: normal - Labs Labs: Abnormal lab results 10/07/18 Range/Units 05:20 Hgb 8.4 L (10.1-14.3) gm/dl Hct 25.2 L D (30.3-42.9) %
--- NOTE | 2018-10-07 10:51 | Discharge Summary ---
Providers - Providers Date of Admission: 10/05/18 20:21 Date of discharge: 10/08/18 Attending physician: PHOENIX NEWTON MD 10/06/18 18:16 Consult to Order Checker [CONS] Routine Reason For Exam: assistance with , SNS Primary care physician: PHOENIX NEWTON MD Hospitalization Reason for admission: active labor, IUP at term Delivery: Procedure details: See delivery note Episiotomy: none Laceration: 1st degree Other procedures: none complications: none Discharge diagnosis: IUP at term delivered Condition at discharge: Good Disposition: DC-01 TO HOME OR SELFCARE Plan - Provider Discharge Summary Activity: routine, no sex for 6 weeks, no heavy lifting 4 weeks, no strenuous exercise Diet: routine Instructions: routine Additional instructions: [] Smoking cessation referral if applicable(refer to patient education folder for contact #) [] Refer to [facility]'s [facility] Booklet Call your doctor immediately for: * Fever > 100.5 * Heavy vaginal bleeding ( >1 pad per hour) * Severe persistent headache * Shortness of breath * Reddened, hot, painful area to leg or breast * Drainage or odor from incision. * Keep incision clean and dry at all times and follow doctor's instructions regarding bathing/showering - Follow up plan Follow up: PHOENIX NEWTON MD [Primary Care Provider] - 6 Weeks
[2018-10-08] MEDS: IBUPROFEN PO SCH ×3 (05:11→11:56)
[2018-10-08] MEDS: PERCOCET 5/325 PO PRN ×2 (05:13→13:45)
[2018-10-08] MEDS: COLACE PO SCH (10:10)
[2018-10-08] MEDS: FEOSOL PO SCH (10:10)
[2018-10-08] MEDS: PRENATAL VITAMIN PO SCH (10:10)
[2018-10-08 13:54] VITALS: BP 110/52
== END 2018-10-08 14:30 | disposition home or self-care (01) | DRG 775 ==
LOC: TRG 20:19 → APU 20:21 → LD 20:26 → OB 10-06 20:05
PROVIDERS: ADMIT Obstetrics & Gynecology; ATTEND Obstetrics & Gynecology
PROC: 10E0XZZ Delivery of Products of Conception, External Approach (ICD-10-PCS; principal; 2018-10-06)
DX: O48.0 Post-term pregnancy (principal); Z3A.41 41 weeks gestation of pregnancy; Z37.0 Single live birth; O99.824 Streptococcus B carrier state complicating childbirth; O77.0 Labor and delivery complicated by meconium in amniotic fluid; O32.6XX0 Maternal care for compound presentation, not applicable or unspecified; O70.0 First degree perineal laceration during delivery; O99.02 Anemia complicating childbirth; D50.9 Iron deficiency anemia, unspecified; Z83.3 Family history of diabetes mellitus; Z91.018 Allergy to other foods
CPT/HCPCS: 36415; 85014; 85018; 85027; 86592; 86850; 86900; 86901; 96374; 96376; G0378; J0290; J0595; J2405; J2590; J3010; J7120